=== PATIENT | male | born 1980 | race Caucasian/White ===

== ENCOUNTER 2023-12-09 08:55 | Inpatient (IN) | payer OTHER ==
[~2023-12-09] VITALS: Ht 175.3 cm; Wt 80.3 kg
[2023-12-09] MEDS ORDERED: ASPIRIN 325MG EC TABLET PO ONE (09:45)
[2023-12-09 09:58] LABS: HEMOGLOBIN. 16.3 g/dL (14.0-18.0); MEAN CORPUSCULAR HEMOGLOBIN 30.3 pg (28.0-32.0); MEAN CORPUSCULAR VOLUME 88.9 fL (80.0-94.0); MEAN PLATELET VOLUME 7.7 fl (7.4-10.4); PLATELET 258 x1000/uL (130-400); RED CELL DISTRIBUTION WIDTH 13.4 % (11.6-14.6); WHITE BLOOD COUNT 11.2 x1000/uL (4.5-11.0)
[2023-12-09 10:02] LABS: DIFFERENTIAL COMMENT 1
[2023-12-09 10:10] LABS: PROTHROMBIN TIME 11.2 sec (9.6-11.0)
[2023-12-09] MEDS ORDERED: ACETAMINOPHEN 325MG TABLET PO ONE (10:30)
[2023-12-09] MEDS ORDERED: ACETAMINOPHEN 500MG TABLET PO NR (10:45)
[2023-12-09] MEDS ORDERED: IOHEXOL-350 100 ML BOTTLE ONE (11:00)
[2023-12-09 11:15] LABS: PLATELET ESTIMATE NORMAL
[2023-12-09 12:17] LABS: ALANINE AMINOTRANSFERASE 39 IU/L (10-49); ALBUMIN 4.3 g/dL (3.2-4.8); ASPARTATE AMINOTRANSFERASE 31 IU/L (<34); BILIRUBIN TOTAL 0.7 mg/dL (0.1-1.0); CALCIUM 9.2 mg/dL (8.7-10.4); CARBON DIOXIDE 24 mEq/L (21-32); CHLORIDE 101 mEq/L (98-107); GLUCOSE 142 mg/dL (70-105); POTASSIUM 4.2 mEq/L (3.5-5.1); PROTEIN TOTAL 7.9 g/dL (6.0-8.3); SODIUM 134 mEq/L (136-145); UREA NITROGEN BLOOD 15 mg/dL (9-23)
[2023-12-09] MEDS ORDERED: ONDANSETRON HCL 4MG/2ML INJ IV ONE (12:30)
[2023-12-09 12:47] LABS: ETHANOL BLOOD < 10 mg/dL (<10); TROPONIN I HIGH SENSITIVITY < 4 ng/L (3.0-53)
[2023-12-09] MEDS ORDERED: DEXTROSE 50% WATER 50ML SYRINGE IV PRN (14:00)
[2023-12-09] MEDS ORDERED: IPRATROPIUM/ALBUTEROL 0.5-3(2.5)MG/3ML NEB HHN PRN (14:00)
[2023-12-09] MEDS ORDERED: DOCUSATE SODIUM 100MG CAPSULE PO PRN (14:00)
[2023-12-09] MEDS ORDERED: NALOXONE HCL 0.4MG/ML VIAL IV PRN (14:30)
[2023-12-09] MEDS: MORPHINE SULFATE 2 MG/ML CPJ (NOT FOR IM USE) IV PRN ×2 (14:49→23:41)
[2023-12-09 15:08] LABS: CREATINE KINASE 55 IU/L (46-171); TROPONIN I HIGH SENSITIVITY 7 ng/L (3.0-53)
[2023-12-09 15:31] LABS: CREATINE KINASE MB FRACTION < 0.0 ng/mL (0.5-3.6)
[2023-12-09] MEDS ORDERED: LABETALOL 5MG/ML SYR 20 MG/4 ML SYRINGE IV PRN (17:51)
[2023-12-09] MEDS: ONDANSETRON HCL 4MG/2ML INJ IV PRN (23:41)
[2023-12-09 23:52] LABS: CREATINE KINASE MB FRACTION 41.6 ng/mL (0.5-3.6)
[2023-12-10] MEDS: ATORVASTATIN CALCIUM 40MG TABLET PO SCH ×2 (04:00→21:08)
[2023-12-10 04:01] LABS: TROPONIN I HIGH SENSITIVITY 8007 ng/L (3.0-53)
[2023-12-10 04:54] LABS: SODIUM URINE RANDOM 59 mEq/L
[2023-12-10 05:15] LABS: *AMPHETAMINES SCREEN URINE NEGATIVE (NEGATIVE); *BARBITURATES SCREEN URINE NEGATIVE (NEGATIVE); *BENZODIAZEPINES SCREEN URINE NEGATIVE (NEGATIVE); *COCAINE SCREEN URINE NEGATIVE (NEGATIVE); ECSTASY MDMA SCREEN URINE NEGATIVE (NEGATIVE); METHADONE URINE SCREEN Neg (NEGATIVE); OPIATES URINE SCREEN PRESUMPTIVE POSITIVE (NEGATIVE); PHENCYCLIDINE URINE SCREEN NEGATIVE (NEGATIVE)
[2023-12-10] MEDS: ACETAMINOPHEN 325MG TABLET PO PRN ×3 (05:34→20:05)
[2023-12-10 05:48] LABS: CLARITY URINE CLEAR (CLEAR); COLOR URINE YELLOW (YELLOW); GLUCOSE URINE NEGATIVE (NEGATIVE); KETONES URINE NEGATIVE (NEGATIVE); LEUKOCYTE ESTERASE URINE NEGATIVE (NEGATIVE); NITRITE URINE NEGATIVE (NEGATIVE); OCCULT BLOOD URINE 1+ (NEGATIVE); PH URINE 6.5 (4.5-8.0); PROTEIN URINE 1+ (NEGATIVE)
[2023-12-10 07:08] LABS: OSMOLALITY URINE 1042 mOsm/kg (500-850); SQUAMOUS EPITHELIAL CELL URINE RARE /lpf (RARE/1+); WBC URINE 0-2 /hpf (0-2)
[2023-12-10 07:09] LABS: BACTERIA URINE NONE SEEN; YEAST URINE NONE SEEN
[2023-12-10 08:08] LABS: BASOPHILS % 0.2 % (0.0-2.0); HEMATOCRIT. 44.3 % (42.0-52.0); HEMOGLOBIN. 14.9 g/dL (14.0-18.0); MEAN CORPUSCULAR HGB CONC 33.6 g/dL (31.0-37.0); MEAN CORPUSCULAR VOLUME 89.3 fL (80.0-94.0); MEAN PLATELET VOLUME 7.8 fl (7.4-10.4); MONOCYTES % 10.1 % (2.0-8.0); NEUTROPHILS % 76.7 % (40.0-76.0); PLATELET 252 x1000/uL (130-400); RED BLOOD CELL COUNT 4.96 mill/uL (4.7-6.1); RED CELL DISTRIBUTION WIDTH 13.2 % (11.6-14.6); WHITE BLOOD COUNT 10.3 x1000/uL (4.5-11.0)
[2023-12-10 08:22] LABS: ALANINE AMINOTRANSFERASE 38 IU/L (10-49); ALBUMIN 4.3 g/dL (3.2-4.8); ASPARTATE AMINOTRANSFERASE 98 IU/L (<34); BILIRUBIN TOTAL 0.6 mg/dL (0.1-1.0); CARBON DIOXIDE 26 mEq/L (21-32); CHLORIDE 101 mEq/L (98-107); CHOLESTEROL 173 mg/dL (<200); CREATININE 0.9 mg/dL (0.6-1.3); GLUCOSE 130 mg/dL (70-105); HDL CHOLESTEROL 25 mg/dL (>55); LDL CHOLESTEROL 154 mg/dL (5-100); POTASSIUM 3.9 mEq/L (3.5-5.1); PROTEIN TOTAL 7.6 g/dL (6.0-8.3); SODIUM 135 mEq/L (136-145); T4 FREE 0.92 ng/dL (0.89-1.76); THYROID STIMULATING HORMONE 0.26 uIU/mL (0.55-4.78); TRIGLYCERIDE 108 mg/dL (0-150); UREA NITROGEN BLOOD 20 mg/dL (9-23)
[2023-12-10 08:30] VITALS: BP 120/74; PULSE 82; RESP 12; TEMP 98.2
[2023-12-10] MEDS: PANTOPRAZOLE SODIUM 40 MG/VIAL IV SCH (10:35)
[2023-12-10] MEDS: ASPIRIN 81MG TABLET PO SCH (10:35)
[2023-12-10 12:00] VITALS: BP 125/79; PULSE 62; RESP 20; TEMP 97.9
[2023-12-10] MEDS: MORPHINE SULFATE 2 MG/ML CPJ (NOT FOR IM USE) IV PRN (12:16)
[2023-12-10 16:00] VITALS: BP 122/78; PULSE 67; RESP 20; TEMP 98
[2023-12-10] MEDS: ONDANSETRON HCL 4MG/2ML INJ IV PRN (16:55)
[2023-12-10 17:31] LABS: TROPONIN I HIGH SENSITIVITY 11497 ng/L (3.0-53)
[2023-12-10 20:00] VITALS: BP 114/73; PULSE 63; RESP 16; TEMP 98.1
[2023-12-11] VITALS: BP 104/68; PULSE 67; RESP 16; TEMP 97.5
[2023-12-11] MEDS: ACETAMINOPHEN 325MG TABLET PO PRN ×4 (00:04→17:36)
[2023-12-11 04:00] VITALS: BP 101/67; PULSE 57; RESP 18; TEMP 97.3
[2023-12-11 07:01] LABS: HEMATOCRIT 41.4 % (42.0-52.0); HEMOGLOBIN 14.3 g/dL (14.0-18.0); MEAN CORPUSCULAR HEMOGLOBIN 30.3 pg (28.0-32.0); MEAN CORPUSCULAR HGB CONC 34.5 g/dL (31.0-37.0); PLATELET 256 x1000/uL (130-400); RED CELL DISTRIBUTION WIDTH 13.2 % (11.6-14.6); WHITE BLOOD COUNT 12.4 x1000/uL (4.5-11.0)
[2023-12-11 07:12] LABS: ALANINE AMINOTRANSFERASE 43 IU/L (10-49); ALBUMIN 4.1 g/dL (3.2-4.8); ASPARTATE AMINOTRANSFERASE 88 IU/L (<34); BILIRUBIN TOTAL 0.9 mg/dL (0.1-1.0); CALCIUM 9.1 mg/dL (8.7-10.4); CARBON DIOXIDE 24 mEq/L (21-32); CHLORIDE 103 mEq/L (98-107); CREATININE 0.8 mg/dL (0.6-1.3); GLUCOSE 106 mg/dL (70-105); PROTEIN TOTAL 7.8 g/dL (6.0-8.3); SODIUM 137 mEq/L (136-145); UREA NITROGEN BLOOD 23 mg/dL (9-23)
[2023-12-11 08:00] VITALS: BP 112/81; PULSE 78; RESP 20; TEMP 96.6
[2023-12-11] MEDS: ASPIRIN 81MG TABLET PO SCH (08:22)
[2023-12-11] MEDS: PANTOPRAZOLE SODIUM 40 MG/VIAL IV SCH (08:22)
[2023-12-11] MEDS: MORPHINE SULFATE 2 MG/ML CPJ (NOT FOR IM USE) IV PRN ×2 (08:55→19:43)
[2023-12-11] MEDS: ONDANSETRON HCL 4MG/2ML INJ IV PRN (11:44)
[2023-12-11 12:00] VITALS: BP 107/67; PULSE 60; RESP 18; TEMP 96.6
[2023-12-11] MEDS ORDERED: DEXAMETHASONE 10 MG/ML VIAL IV NR (12:15)
[2023-12-11] MEDS ORDERED: MANNITOL 12.5G (25%) VIAL 50ML IV ONE (13:00)
[2023-12-11 16:00] VITALS: BP 117/78; PULSE 60; RESP 18; TEMP 97.1
[2023-12-11] MEDS: DEXAMETHASONE 4MG/ML 1ML VIAL IV SCH ×2 (17:37→23:55)
[2023-12-11 20:00] VITALS: BP 105/63; PULSE 68; RESP 18; TEMP 98.5
[2023-12-11] MEDS ORDERED: SODIUM CHLORIDE 3% 500 ML IV SCH (20:00)
[2023-12-11] MEDS: ATORVASTATIN CALCIUM 40MG TABLET PO SCH (20:46)
[2023-12-11 21:39] LABS: CALCIUM 8.9 mg/dL (8.7-10.4); CARBON DIOXIDE 24 mEq/L (21-32); CHLORIDE 103 mEq/L (98-107); CREATININE 0.8 mg/dL (0.6-1.3); GLUCOSE 148 mg/dL (70-105); SODIUM 135 mEq/L (136-145); UREA NITROGEN BLOOD 21 mg/dL (9-23)
[2023-12-12] VITALS: BP 112/76; PULSE 63; RESP 20; TEMP 98.7
[2023-12-12] MEDS: ONDANSETRON HCL 4MG/2ML INJ IV PRN (00:02)
[2023-12-12 01:54] LABS: CALCIUM 8.9 mg/dL (8.7-10.4); CARBON DIOXIDE 25 mEq/L (21-32); CHLORIDE 103 mEq/L (98-107); CREATININE 0.8 mg/dL (0.6-1.3); GLUCOSE 156 mg/dL (70-105); POTASSIUM 3.9 mEq/L (3.5-5.1); SODIUM 134 mEq/L (136-145); UREA NITROGEN BLOOD 20 mg/dL (9-23)
[2023-12-12 04:00] VITALS: BP 115/78; PULSE 60; RESP 20; TEMP 98.5
[2023-12-12 04:52] LABS: HEMATOCRIT 42.8 % (42.0-52.0); HEMOGLOBIN 14.5 g/dL (14.0-18.0); MEAN CORPUSCULAR HEMOGLOBIN 29.9 pg (28.0-32.0); MEAN CORPUSCULAR HGB CONC 33.8 g/dL (31.0-37.0); MEAN CORPUSCULAR VOLUME 88.4 fL (80.0-94.0); PLATELET 259 x1000/uL (130-400); RED BLOOD CELL COUNT 4.84 mill/uL (4.7-6.1); RED CELL DISTRIBUTION WIDTH 12.9 % (11.6-14.6); WHITE BLOOD COUNT 11.2 x1000/uL (4.5-11.0)
[2023-12-12 05:02] LABS: CALCIUM 8.9 mg/dL (8.7-10.4); CARBON DIOXIDE 25 mEq/L (21-32); CHLORIDE 105 mEq/L (98-107); CREATININE 0.9 mg/dL (0.6-1.3); GLUCOSE 143 mg/dL (70-105); POTASSIUM 4.3 mEq/L (3.5-5.1); SODIUM 136 mEq/L (136-145); UREA NITROGEN BLOOD 23 mg/dL (9-23)
[2023-12-12] MEDS: DEXAMETHASONE 4MG/ML 1ML VIAL IV SCH ×4 (05:13→23:27)
[2023-12-12 08:00] VITALS: BP 91/55; PULSE 64; RESP 20; TEMP 97.9
[2023-12-12] MEDS: PANTOPRAZOLE SODIUM 40 MG/VIAL IV SCH (08:25)
[2023-12-12] MEDS: ASPIRIN 81MG TABLET PO SCH (08:25)
[2023-12-12] MEDS: MORPHINE SULFATE 2 MG/ML CPJ (NOT FOR IM USE) IV PRN ×2 (09:11→20:47)
[2023-12-12 12:00] VITALS: BP 106/60; PULSE 64; RESP 20; TEMP 98.6
[2023-12-12 14:13] LABS: CALCIUM 8.9 mg/dL (8.7-10.4); CARBON DIOXIDE 24 mEq/L (21-32); CHLORIDE 105 mEq/L (98-107); CREATININE 0.8 mg/dL (0.6-1.3); GLUCOSE 152 mg/dL (70-105); POTASSIUM 3.9 mEq/L (3.5-5.1); SODIUM 137 mEq/L (136-145); UREA NITROGEN BLOOD 19 mg/dL (9-23)
[2023-12-12 16:00] VITALS: BP 106/71; PULSE 63; RESP 20; TEMP 97.8
[2023-12-12 20:00] VITALS: BP 114/72; PULSE 62; RESP 18; TEMP 97.3
[2023-12-12] MEDS: ATORVASTATIN CALCIUM 40MG TABLET PO SCH (20:45)
[2023-12-13] VITALS: BP 100/70; PULSE 68; RESP 16; TEMP 97.4
[2023-12-13 04:00] VITALS: BP 112/77; PULSE 94; RESP 15; TEMP 97.8
[2023-12-13] MEDS: DEXAMETHASONE 4MG/ML 1ML VIAL IV SCH ×3 (06:00→21:05)
[2023-12-13 07:52] LABS: BASOPHILS % 0.1 % (0.0-2.0); HEMATOCRIT. 40.8 % (42.0-52.0); HEMOGLOBIN. 13.8 g/dL (14.0-18.0); LYMPHOCYTES % 8.9 % (20.0-50.0); MEAN CORPUSCULAR HGB CONC 33.9 g/dL (31.0-37.0); MEAN CORPUSCULAR VOLUME 88.5 fL (80.0-94.0); MEAN PLATELET VOLUME 8.8 fl (7.4-10.4); MONOCYTES % 5.2 % (2.0-8.0); NEUTROPHILS % 85.8 % (40.0-76.0); PLATELET 277 x1000/uL (130-400); RED BLOOD CELL COUNT 4.61 mill/uL (4.7-6.1); WHITE BLOOD COUNT 15.6 x1000/uL (4.5-11.0)
[2023-12-13 08:00] VITALS: BP 112/71; PULSE 58; RESP 20; TEMP 98.7
[2023-12-13 08:17] LABS: CALCIUM 8.8 mg/dL (8.7-10.4); CARBON DIOXIDE 25 mEq/L (21-32); CHLORIDE 104 mEq/L (98-107); CREATININE 0.7 mg/dL (0.6-1.3); GLUCOSE 136 mg/dL (70-105); POTASSIUM 4.2 mEq/L (3.5-5.1); SODIUM 136 mEq/L (136-145); UREA NITROGEN BLOOD 22 mg/dL (9-23)
[2023-12-13] MEDS: ASPIRIN 81MG TABLET PO SCH (09:18)
[2023-12-13] MEDS: FAMOTIDINE 20MG/2ML VIAL IV SCH ×2 (09:18→21:03)
[2023-12-13 12:00] VITALS: BP 108/71; PULSE 60; RESP 20; TEMP 98.2
[2023-12-13] MEDS: MORPHINE SULFATE 2 MG/ML CPJ (NOT FOR IM USE) IV PRN (14:44)
[2023-12-13 16:00] VITALS: BP 111/73; PULSE 61; RESP 20; TEMP 97.9
[2023-12-13] MEDS ORDERED: ALPRAZOLAM 0.5 MG TABLET PO PRN (16:15)
[2023-12-13] MEDS ORDERED: HYDROCODONE/ACETAMINOPHEN 5/325MG TABLET PO PRN ×2 (16:15)
[2023-12-13] MEDS: ENOXAPARIN 40MG/0.4ML SYR SUBCUT SCH (17:26)
[2023-12-13 20:00] VITALS: BP 104/67; PULSE 62; RESP 18; TEMP 98.2
[2023-12-13] MEDS: ATORVASTATIN CALCIUM 40MG TABLET PO SCH (21:03)
[2023-12-13] MEDS: LEVETIRACETAM 500MG TABLET PO SCH (21:03)
[2023-12-14] VITALS: BP 101/65; PULSE 65; RESP 18; TEMP 97.2
[2023-12-14 04:00] VITALS: BP 105/61; PULSE 62; RESP 62; TEMP 97.9
[2023-12-14] MEDS: DEXAMETHASONE 4MG/ML 1ML VIAL IV SCH ×3 (05:13→21:32)
[2023-12-14 06:57] LABS: HEMATOCRIT 39.7 % (42.0-52.0); HEMOGLOBIN 13.6 g/dL (14.0-18.0); MEAN CORPUSCULAR HEMOGLOBIN 29.9 pg (28.0-32.0); MEAN CORPUSCULAR HGB CONC 34.3 g/dL (31.0-37.0); MEAN CORPUSCULAR VOLUME 87.1 fL (80.0-94.0); PLATELET 291 x1000/uL (130-400); RED BLOOD CELL COUNT 4.55 mill/uL (4.7-6.1); RED CELL DISTRIBUTION WIDTH 12.8 % (11.6-14.6); WHITE BLOOD COUNT 13.8 x1000/uL (4.5-11.0)
[2023-12-14 07:51] LABS: ALANINE AMINOTRANSFERASE 41 IU/L (10-49); ALBUMIN 3.8 g/dL (3.2-4.8); ASPARTATE AMINOTRANSFERASE 33 IU/L (<34); BILIRUBIN TOTAL 0.8 mg/dL (0.1-1.0); CALCIUM 8.7 mg/dL (8.7-10.4); CARBON DIOXIDE 22 mEq/L (21-32); CHLORIDE 105 mEq/L (98-107); CREATININE 0.7 mg/dL (0.6-1.3); GLUCOSE 127 mg/dL (70-105); PROTEIN TOTAL 7.1 g/dL (6.0-8.3); SODIUM 138 mEq/L (136-145); UREA NITROGEN BLOOD 25 mg/dL (9-23)
[2023-12-14 08:00] VITALS: BP 90/57; PULSE 55; RESP 20; TEMP 96.6
[2023-12-14] MEDS: FAMOTIDINE 20MG/2ML VIAL IV SCH ×2 (08:37→21:32)
[2023-12-14] MEDS: LEVETIRACETAM 500MG TABLET PO SCH ×2 (08:37→21:31)
[2023-12-14] MEDS: ASPIRIN 81MG TABLET PO SCH (08:37)
[2023-12-14 12:00] VITALS: BP 103/73; PULSE 50; RESP 18; TEMP 97.3
[2023-12-14 13:06] LABS: ANTI-NUCLEAR ANTIBODIES DIRECT Negative (Negative)
[2023-12-14 16:00] VITALS: BP 105/70; PULSE 61; RESP 18; TEMP 96.6
[2023-12-14] MEDS: ENOXAPARIN 40MG/0.4ML SYR SUBCUT SCH (17:13)
[2023-12-14 20:00] VITALS: BP 102/61; PULSE 60; RESP 20; TEMP 98.2
[2023-12-14] MEDS: ATORVASTATIN CALCIUM 40MG TABLET PO SCH (21:31)
[2023-12-15] VITALS: BP 92/60; PULSE 53; RESP 20; TEMP 97.7
[2023-12-15 04:00] VITALS: BP 100/64; PULSE 53; RESP 20; TEMP 98.2
[2023-12-15] MEDS: DEXAMETHASONE 4MG/ML 1ML VIAL IV SCH ×2 (05:58→13:48)
[2023-12-15 08:00] VITALS: BP 109/75; PULSE 51; RESP 20; TEMP 109; TEMP 97.1
[2023-12-15] MEDS: LEVETIRACETAM 500MG TABLET PO SCH (09:21)
[2023-12-15] MEDS: FAMOTIDINE 20MG/2ML VIAL IV SCH (09:21)
[2023-12-15] MEDS: ASPIRIN 81MG TABLET PO SCH (09:21)
[2023-12-15 12:00] VITALS: BP 105/71; PULSE 60; RESP 18; TEMP 96.6
[2023-12-15 13:11] LABS: ATYPICAL P-ANCA <1:20 titer (Neg:<1:20); CYTOPLASMIC C-ANCA <1:20 titer (Neg:<1:20); PERINUCLEAR P-ANCA <1:20 titer (Neg:<1:20)
[2023-12-15] MEDS ORDERED: ASPI-1160 PO (15:17)
[2023-12-15] MEDS ORDERED: LIP40 PO (15:17)
[2023-12-15] MEDS ORDERED: KEPP500 PO (15:17)
[2023-12-15] MEDS ORDERED: CITA10TA16 PO (15:19)
[2023-12-15] MEDS: ENOXAPARIN 40MG/0.4ML SYR SUBCUT SCH (16:16)
[2023-12-15 16:39] VITALS: BP 105/74; PULSE 60; TEMP 97.8; O2SAT 96
[2023-12-15] MEDS ORDERED: LACTULOSE 20G/30ML UDC PO NR (16:40)
[2023-12-15] MEDS: ACETAMINOPHEN 325MG TABLET PO PRN (16:52)
[2023-12-15 19:06] LABS: ANTI-MYELOPEROXIDASE AB < 0.2 units (0.0-0.9); ANTI-PROTEINASE 3 ABS < 0.2 units (0.0-0.9)
== END 2023-12-15 17:00 | disposition home or self-care (01) | DRG 871 ==
LOC: ER 08:55 → 8WST 12:14 → EDBEDREQ 12:21 → EDBEDREQTM 12:21
PROVIDERS: ADMIT Preventive Medicine Clinical Informatics; ATTEND Preventive Medicine Clinical Informatics
PROC: 4A00X4Z Measurement of Central Nervous Electrical Activity, External Approach (ICD-10-PCS; principal; 2023-12-15)
DX: A41.9 Sepsis, unspecified organism (principal); G93.6 Cerebral edema; I21.4 Non-ST elevation (NSTEMI) myocardial infarction; I63.9 Cerebral infarction, unspecified; E87.1 Hypo-osmolality and hyponatremia; H53.469 Homonymous bilateral field defects, unspecified side; D72.829 Elevated white blood cell count, unspecified; H01.003 Unspecified blepharitis right eye, unspecified eyelid; R73.9 Hyperglycemia, unspecified; H54.61 Unqualified visual loss, right eye, normal vision left eye; R29.704 NIHSS score 4; H01.006 Unspecified blepharitis left eye, unspecified eyelid; T15.91XA Foreign body on external eye, part unspecified, right eye, initial encounter; I66.29 Occlusion and stenosis of unspecified posterior cerebral artery; Z79.899 Other long term (current) drug therapy; Z82.3 Family history of stroke; W44.8XXA Other foreign body entering into or through a natural orifice, initial encounter; Y93.89 Activity, other specified; Y92.89 Other specified places as the place of occurrence of the external cause; Y99.8 Other external cause status
CPT/HCPCS: 36415; 70496; 70498; 70553; 71045; 80048; 80053; 80061; 80305; 80320; 81003; 82550; 82553; 83036; 83520; 83605; 83735; 83930; 83935; 84145; 84300; 84439; 84443; 84484; 85025; 85027; 85303; 86038; 86256; 93005; 93306; 93308; 93970; 95816; 97110; 97112; 97116; 97162; 97166; 97530; 97535; 99291; C9113; J1100; J1650; J2270; J2405; J3490; Q9967; G0480